=== PATIENT | female | born 1945 | race Caucasian/White ===

== ENCOUNTER 2017-03-05 19:31 | Inpatient (IN) | payer OTHER ==
[~2017-03-05] VITALS: Ht 167.6 cm; Wt 53.6 kg
[~2017-03-05 19:31] MED LIST: ASCORBIC ACID500 M3 PO; CALCITONIN-SAL3.8 ML NS; CALCIUM 600 +1 EAC1 PO; CALCIUM500 M4 PO; Colace PO; FLECAINIDE ACE100 MG PO; LO-DOSE ASPIRIN81 M2 PO; LOSARTAN POTASS25 MG PO; LOSARTAN POTASS50 MG PO; PRAVASTATIN SOD20 MG PO; Percocet 5/325,Endoc PO; Protonix PO; VITAMIN D400 UNIT PO; ZOFRAN ODT4 MG PO
[2017-03-05 20:14] LABS: HEMATOCRIT 41.2 % (36.0-46.0); MCH 33.9 PG (29.0-34.0); MCHC 34.2 G/DL (30.0-36.0); MEAN PLAT.VOLUME 9.4 uM^3 (9.5-12.4); PLATELET COUNT 195 K/uL (156-360); RBC DIS.WIDTH-CV 11.9 % (11.8-14.6); RBC DIS.WIDTH-SD 43.6 % (39-53); RED BLOOD COUNT 4.16 M/uL (3.80-5.20); WHITE BLOOD COUNT 10.3 K/uL (4.1-10.2)
[2017-03-05 20:24] LABS: CHLORIDE 105 mEq/L (99-109); POTASSIUM 4.1 mEq/L (3.7-5.4); SODIUM 140 mEq/L (136-147)
[2017-03-05 20:26] LABS: GLUCOSE 103 mg/dL (70-99)
[2017-03-05 20:27] LABS: ANION GAP 13 MEQ/L (2-14)
[2017-03-05 20:28] LABS: TOTAL BILIRUBIN 0.6 mg/dL (0.0-1.0)
[2017-03-05 20:29] LABS: ALKALINE PHOSPHATASE 101 IU/L (3-129)
[2017-03-05 20:30] LABS: GFR ESTIMATE (CALCULATED) 58 mL/min/
[2017-03-05 20:31] LABS: UREA NITROGEN (BUN) 26 mg/dL (9-23)
[2017-03-05 20:33] LABS: LIPASE 10 U/L (1.0-51.0)
[2017-03-06 01:46] VITALS: BP 144/73
[2017-03-06 03:47] VITALS: BP 140/68
[2017-03-06 07:35] VITALS: BP 155/81
[2017-03-06 08:42] LABS: EOSINOPHIL (%) 0 % (0-5); HEMATOCRIT 38.3 % (36.0-46.0); IMMATURE GRANULOCYTE (%) 0.2 % (0.0-0.7); INSTRUMENT ABS NEUTROPHIL CT 4.2 K/uL; LYMPHOCYTE COUNT 1.2 K/uL (1.0-2.8); MCH 33.2 PG (29.0-34.0); MCHC 33.4 G/DL (30.0-36.0); MCV 99.2 FL (83-99); MEAN PLAT.VOLUME 9.8 uM^3 (9.5-12.4); MONOCYTE (%) 6.7 % (3-12); MONOCYTE COUNT 0.4 K/uL (0-0.8); NEUTROPHIL (%) 71.9 % (45-76); NEUTROPHIL COUNT 4.2 K/uL (1.8-6.4); PLATELET COUNT 182 K/uL (156-360); RBC DIS.WIDTH-SD 43.9 % (39-53); RED BLOOD COUNT 3.86 M/uL (3.80-5.20); WHITE BLOOD COUNT 5.8 K/uL (4.1-10.2)
[2017-03-06 08:56] LABS: ANION GAP 6 MEQ/L (2-14); CHLORIDE 108 MEQ/L (99-109); GFR ESTIMATE (CALCULATED) > 59 mL/min/; GLUCOSE 105 mg/dL (70-99); POTASSIUM 4.7 MEQ/L (3.7-5.4); SAMPLE HEMOLYSIS CHECK 0; SAMPLE ICTERIC CHECK 0; SAMPLE LIPEMIA CHECK 0; SODIUM 142 MEQ/L (136-147); UREA NITROGEN (BUN) 19 mg/dL (9-23)
[2017-03-06 12:49] VITALS: BP 142/78
[2017-03-06 15:34] VITALS: BP 146/72
[2017-03-06 20:26] VITALS: BP 139/81
[2017-03-07 00:07] VITALS: BP 139/83
[2017-03-07 07:39] LABS: HEMATOCRIT 40.5 % (36.0-46.0); MCH 33.7 PG (29.0-34.0); MCHC 33.1 G/DL (30.0-36.0); MCV 101.8 FL (83-99); MEAN PLAT.VOLUME 9.9 uM^3 (9.5-12.4); PLATELET COUNT 165 K/uL (156-360); RBC DIS.WIDTH-SD 45.1 % (39-53); RED BLOOD COUNT 3.98 M/uL (3.80-5.20); WHITE BLOOD COUNT 4.9 K/uL (4.1-10.2)
[2017-03-07 07:48] LABS: ANION GAP 10 MEQ/L (2-14); CHLORIDE 109 MEQ/L (99-109); GFR ESTIMATE (CALCULATED) > 59 mL/min/; GLUCOSE 81 mg/dL (70-99); POTASSIUM 4.3 MEQ/L (3.7-5.4); SAMPLE HEMOLYSIS CHECK 0; SAMPLE ICTERIC CHECK 0; SAMPLE LIPEMIA CHECK 0; SODIUM 142 MEQ/L (136-147); UREA NITROGEN (BUN) 13 mg/dL (9-23)
[2017-03-07 08:52] VITALS: BP 171/78
[2017-03-07 16:29] VITALS: BP 120/81
[2017-03-07 22:52] VITALS: BP 156/79
[2017-03-08 08:29] VITALS: BP 187/84
== END 2017-03-08 10:06 | disposition home or self-care (01) | DRG 390 ==
LOC: EME 19:31 → EDOF 23:43 → 2EASTP 23:43 → ENRESERV 23:47 → EDOF 03-06 01:24 → 2EASTP 03-06 01:25
PROVIDERS: Hospitalist; Internal Medicine; Physician Assistant
DX: K56.600 Partial intestinal obstruction, unspecified as to cause (principal); I10 Essential (primary) hypertension; E78.5 Hyperlipidemia, unspecified; I48.2 Chronic atrial fibrillation; I65.23 Occlusion and stenosis of bilateral carotid arteries; Z79.82 Long term (current) use of aspirin; Z86.73 Personal history of transient ischemic attack (TIA), and cerebral infarction without residual deficits; Z87.442 Personal history of urinary calculi; Z90.411 Acquired partial absence of pancreas; Z95.0 Presence of cardiac pacemaker
CPT/HCPCS: 71010; 74000; 74177; 80048; 80053; 83605; 83690; 85025; 85027; 93880; 94640; 99281; 99285; J1644; J2405; J3010; J7030; J7040; S0028

== ENCOUNTER 2017-06-25 10:50 | Emergency (ER) | payer OTHER ==
[~2017-06-25] VITALS: Ht 167.6 cm; Wt 56.7 kg
[2017-06-25 12:00] LABS: HEMATOCRIT 44.4 % (36.0-46.0); HEMOGLOBIN 15.2 G/DL (11.9-15.5); MCH 33.5 PG (29.0-34.0); MCHC 34.2 G/DL (30.0-36.0); MCV 97.8 FL (83-99); PLATELET COUNT 203 K/uL (156-360); RBC DIS.WIDTH-CV 12.1 % (11.8-14.6); RBC DIS.WIDTH-SD 44.1 % (39-53); RED BLOOD COUNT 4.54 M/uL (3.80-5.20)
[2017-06-25 12:07] LABS: CHLORIDE 103 mEq/L (99-109); POTASSIUM 4.5 mEq/L (3.7-5.4); SODIUM 138 mEq/L (136-147)
[2017-06-25 12:09] LABS: GLUCOSE 103 mg/dL (70-99)
[2017-06-25 12:13] LABS: CREATININE 1.2 mg/dL (0.6-1.3); GFR ESTIMATE (CALCULATED) 47 mL/min/
[2017-06-25 12:14] LABS: UREA NITROGEN (BUN) 24 mg/dL (9-23)
[2017-06-25 12:20] LABS: TROP-I INTERPRETATION NEGATIVE; TROPONIN-I < 0.01 ng/mL (0.0-0.30)
[2017-06-25 13:32] LABS: D-DIMER ELISA < 150.00 ng/mLDDU (<230)
[2017-06-25 14:28] VITALS: BP 126/74
== END 2017-06-25 14:28 | disposition home or self-care (01) ==
LOC: EME 10:50
PROVIDERS: Physician Assistant
DX: R06.09 Other forms of dyspnea (principal); I10 Essential (primary) hypertension; E78.5 Hyperlipidemia, unspecified; Z79.82 Long term (current) use of aspirin; Z95.0 Presence of cardiac pacemaker; Z86.73 Personal history of transient ischemic attack (TIA), and cerebral infarction without residual deficits; Z85.9 Personal history of malignant neoplasm, unspecified; Z87.442 Personal history of urinary calculi; Z90.49 Acquired absence of other specified parts of digestive tract; Z86.79 Personal history of other diseases of the circulatory system; Z88.2 Allergy status to sulfonamides; Z88.1 Allergy status to other antibiotic agents; Z91.048 Other nonmedicinal substance allergy status
CPT/HCPCS: 71046; 80048; 84484; 85027; 85379; 93005; 99281; 99284

== ENCOUNTER 2017-08-06 15:21 | Emergency (ER) | payer OTHER ==
[~2017-08-06] VITALS: Ht 165.1 cm; Wt 53.6 kg
[2017-08-06 15:54] LABS: HEMATOCRIT 39.7 % (36.0-46.0); HEMOGLOBIN 13.5 G/DL (11.9-15.5); MCH 33.6 PG (29.0-34.0); MCV 98.8 FL (83-99); PLATELET COUNT 162 K/uL (156-360); RBC DIS.WIDTH-CV 12.7 % (11.8-14.6); RBC DIS.WIDTH-SD 46.1 % (39-53); RED BLOOD COUNT 4.02 M/uL (3.80-5.20); WHITE BLOOD COUNT 6.8 K/uL (4.1-10.2)
[2017-08-06 15:59] LABS: CHLORIDE 102 mEq/L (99-109); POTASSIUM 5.3 mEq/L (3.7-5.4); SODIUM 140 mEq/L (136-147)
[2017-08-06 16:00] LABS: GLUCOSE 82 mg/dL (70-99)
[2017-08-06 16:04] LABS: CREATININE 1.2 mg/dL (0.6-1.3); GFR ESTIMATE (CALCULATED) 47 mL/min/
[2017-08-06 16:06] LABS: UREA NITROGEN (BUN) 25 mg/dL (9-23)
[2017-08-06 16:07] LABS: CREATINE KINASE 102 IU/L (1-294)
[2017-08-06 16:11] LABS: TROP-I INTERPRETATION NEGATIVE; TROPONIN-I < 0.01 ng/mL (0.0-0.30)
[2017-08-06 18:24] VITALS: BP 149/78
== END 2017-08-06 18:39 | disposition left against medical advice (07) ==
LOC: EME 15:21
PROVIDERS: Emergency Medicine
DX: G57.32 Lesion of lateral popliteal nerve, left lower limb (principal); I10 Essential (primary) hypertension; E78.5 Hyperlipidemia, unspecified; Z86.73 Personal history of transient ischemic attack (TIA), and cerebral infarction without residual deficits; Z87.442 Personal history of urinary calculi; Z90.49 Acquired absence of other specified parts of digestive tract; Z79.82 Long term (current) use of aspirin; Z88.2 Allergy status to sulfonamides; Z88.1 Allergy status to other antibiotic agents
CPT/HCPCS: 70450; 80048; 82550; 84484; 85027; 85610; 85730; 93005; 99281; 99285